=== PATIENT | female | born 2000 | race Caucasian/White ===

== ENCOUNTER 2021-08-18 15:56 | Emergency (ER) | payer OTHER, MEDICAID, SELFPAY ==
[2021-08-18 16:03] VITALS: BP 138/78; PULSE 77; RESP 18; TEMP 36.9; O2SAT 100; BMI 20.1
--- NOTE | 2021-08-18 16:11 | DI.US.S_ITS ---
PROCEDURE: US OB <= 14 WEEKS FETUS INDICATIONS: @ 6 WEEKS, PAIN AND VAGINAL BLEEDING OUTSIDE/PRIOR DATING DATA: Last menstrual period (LMP): July 02, 2021 LMP-based estimated date of delivery (ANABELLE): April 08, 2022 First dating scan (date and location): Not applicable Estimated date of delivery (ANABELLE) from first dating scan: Not applicable TECHNIQUE: Real-time scanning was performed of the fetus and maternal pelvic organs, with image documentation. Endovaginal scanning was also performed to better visualize the fetus and maternal ovaries. COMPARISON: None. FINDINGS: Embryo: Fluid-filled structure noted in the endometrial cavity. No pole or yolk sac identified. Mean gestational sac diameter measures 0.4 centimeters which would correspond to ultrasound estimated gestational age of 5 weeks 1 day. Heart rate: Not identified Maternal organs: Ovaries are sonographically normal. IMPRESSION: Fluid-filled structure in the endometrial cavity which may represent a gestational sac or pseudo gestational sac. Finding may represent early intrauterine , nonviable or occult ectopic . Recommend close clinical observation, correlation with serial beta HCG and short-term ultrasound follow-up in 1 week. Dictated by: Kacey Retana MD, PhD on 08/18/2021 at 18:05 Approved by: Kacey Retana MD, PhD on 08/18/2021 at 18:09
[2021-08-18 16:39] LABS: Add Manual Diff / Slide Review NO; Basophils Absolute Auto 100 /uL (0-100); Basophils Percent Auto 0.6 % (0-2); Eosinophils Absolute Auto 0 /uL (0-450); Eosinophils Percent Auto 0.6 % (2-4); Hematocrit 39.1 % (36-46); Hemoglobin 13.1 g/dL (12.0-16.0); Lymphocytes Absolute Auto 2700 /uL (1100-4500); Lymphocytes Percent Auto 33.6 % (25-40); Mean Corpuscular HGB Conc 33.5 % (30-36); Mean Corpuscular Hemoglobin 29.3 PG (26-34); Mean Corpuscular Volume 87.6 fL (80-100); Monocytes Absolute Auto 500 /uL (0-900); Monocytes Percent Auto 6.6 % (3-14); Neutrophils Absolute Auto 4600 /uL (1500-7000); Neutrophils Percent Auto 58.6 % (50-75); Platelet Count 256 X10^3/uL (150-400); Red Blood Cell Count 4.47 X10^6/uL (4.0-5.2); Red Cell Distribution Width 14.4 % (11.6-14.8); White Blood Cell Count 7.9 X10^3/uL (4.5-11.0)
[2021-08-18 16:54] LABS: Alanine Aminotransferase 20 IU/L (<35); Albumin 5.2 g/dL (3.5-5.0); Albumin Globulin Ratio 1.7 (1.0-2.8); Alkaline Phosphatase 34 U/L (38-126); Aspartate Aminotransferase 21 IU/L (14-36); Bilirubin Total 0.7 mg/dL (0.2-1.3); Blood Urea Nitrogen 14 mg/dL (7-17); Calcium 9.5 mg/dL (8.4-10.2); Carbon Dioxide 26 mmol/L (22-32); Chloride 105 mmol/L (98-107); Estimated Glomerular Filt Rate > 60.0 mL/min (>60); Glucose 81 mg/dL (70-100); HEMOLYSIS < 15 (0-50); Potassium 3.7 mmol/L (3.4-5.1); Sodium 139 mmol/L (137-145); Total Protein 8.2 g/dL (6.3-8.2)
[2021-08-18 17:10] LABS: HCG Quantitative /Beta subunit 809 mIU/mL
[2021-08-18 18:31] LABS: Appearance Urine UA CLEAR; Bilirubin Urine UA NEGATIVE (NEGATIVE); Color Urine UA YELLOW; Glucose Urine UA NEGATIVE (Negative); Ketones Urine UA NEGATIVE (NEGATIVE); Leukocyte Esterase Urine UA NEGATIVE (NEGATIVE); Nitrite Urine UA NEGATIVE (Negative); Occult Blood Urine UA 3+ (Negative); Protein Urine UA NEGATIVE (Negative); Urobilinogen Urine UA 0.2 E.U./dL (0.2)
[2021-08-18 18:32] LABS: pH Urine UA 5.5 (4.5-8.0)
[2021-08-18 18:48] LABS: Bacteria Urine None Seen; Culture Indicated Urine Cult Not Indicated; RBC Urine 5-10/HPF (0-5/HPF); Squamous Epithelial Cell Urine 5-10 /HPF (0-5/HPF); WBC Urine None Seen (0-5/HPF)
[2021-08-18 18:57] VITALS: BP 117/59; PULSE 86; O2SAT 99
[2021-08-18 18:58] VITALS: BP 117/59; PULSE 83; RESP 18; O2SAT 98
[2021-08-18 19:00] VITALS: BP 114/63; PULSE 82; RESP 18; O2SAT 98
[2021-08-18 19:30] VITALS: BP 119/59; PULSE 84; O2SAT 98
--- NOTE | 2021-08-18 19:38 | ED.PREGNANCY ---
HPI - <Dorothy Hayes PA-C - Last Filed: 08/18/21 20:12> General Chief complaint: Urogenital-Female Stated complaint: bleeding, thinks miscarriage Time Seen by Provider: 08/18/21 18:53 Mode of arrival: Ambulatory History of Present Illness HPI Narrative: 21-year-old female, presents to the ED with vaginal bleeding for 1 day. Patient states her LMP was 07/02/2021. Patient has had multiple positive home tests. Patient states that her vaginal bleeding started this morning progressing from light pink to dark red with a few clots. Patient also endorses pelvic cramping. Patient denies fever, chills, chest pain, shortness of breath, dysuria, urinary frequency, abdominal pain, nausea, vomiting, lightheadedness, dizziness, syncope. Related Data Home Medications Medication Instructions Recorded Confirmed vitamin no.102-iron 90 1 cap PO DAILY 08/06/21 mg-folate 1 mg-dha 200 mg capsule Allergies Allergy/AdvReac Type Severity Reaction Status Date / Time No Known Drug Allergies Allergy Unverified 08/06/21 17:10 Review of Systems <Dorothy Hayes PA-C - Last Filed: 08/18/21 20:12> Review of Systems ROS Unobtainable: All systems reviewed & are unremarkable except as noted in HPI and below Constitutional Constitutional: Denies chills, Denies fatigue, Denies fever(s), Denies frequent falls, Denies lethargy and Denies weakness Eyes Eyes: Denies change in vision, Denies eye discharge, Denies irritation and Denies loss of vision ENT Ears, Nose, Mouth, and Throat: Denies change in voice, Denies dizziness, Denies neck pain, Denies sore throat and Denies throat swelling Cardiovascular Cardiovascular: Denies chest pain, Denies irregular heart rhythm, Denies lightheadedness, Denies palpitations, Denies dyspnea, Denies dyspnea on exertion and Denies orthopnea Respiratory Respiratory: Denies cough, Denies dyspnea, Denies dyspnea on exertion and Denies wheezing Gastrointestinal Gastrointestinal: Denies abdominal pain, Denies change in bowel habits, Denies diarrhea, Denies nausea and Denies vomiting Genitourinary Genitourinary: Reports abnormal vaginal bleeding, Denies hematuria, Denies flank pain, Denies urinary incontinence and Denies urinary urgency Comments: Pelvic cramping. Vaginal bleeding, bright red, with clots. Musculoskeletal Musculoskeletal: Denies back pain, Denies muscle weakness, Denies neck pain, Denies numbness and Denies tingling Integumentary/Breasts Skin/Breast: Denies pruritus, Denies erythema, Denies rash and Denies wounds Neurologic Neurologic: Denies behavioral changes, Denies confusion, Denies dizziness, Denies frequent falls, Denies loss of vision, Denies numbness, Denies tingling and Denies weakness Psychiatric Psychiatric: Denies anxiety, Denies behavioral changes, Denies confusion, Denies depression, Denies homicidal ideation and Denies suicidal ideation Endocrine Endocrine: Denies fatigue, Denies flushing and Denies palpitations Hematologic/Lymphatic Hematologic/Lymphatic: Denies easy bruising Allergic/Immunologic Allergic/Immunologic: Denies urticaria, Denies throat swelling and Denies wheezing Exam <Dorothy Hayes PA-C - Last Filed: 08/18/21 20:12> Initial Vital Signs Initial Vital Signs: Vital Signs Temperature 98.5 F 08/18/21 16:03 Pulse Rate 77 08/18/21 16:03 Respiratory Rate 18 08/18/21 16:03 Blood Pressure 138/78 08/18/21 16:03 Pulse Oximetry 100 08/18/21 16:03 Const General: cooperative, healthy appearing and comfortable [facility] Head: normal to inspection Eyes General: appearance normal, both eyes and all related structures Neck Neck: normal visual inspection Chest Chest: normal inspection of the chest Resp Effort & Inspection: normal respiratory effort Auscultation: clear to auscultation bilaterally Cardio Rate: regular rate Rhythm: regular rhythm GI Other: Abdomen is soft, nondistended, nontender to palpation. No CVA tenderness. General: No CVA tenderness Skin General: no rashes or lesions noted Neuro General: patient alert, patient awake and patient oriented x3 Psych Appearance: grossly normal Mental Status: mental status grossly normal <Geena Cronin DO - Last Filed: 08/23/21 09:16> Initial Vital Signs Initial Vital Signs: Vital Signs Temperature 98.5 F 08/18/21 16:03 Pulse Rate 77 08/18/21 16:03 Respiratory Rate 18 08/18/21 16:03 Blood Pressure 138/78 08/18/21 16:03 Pulse Oximetry 100 08/18/21 16:03 Course <Dorothy Hayes PA-C - Last Filed: 08/18/21 20:12> Orders Ordered: Discontinued Medications Acetaminophen (Acetaminophen 325 Mg Tablet) 975 mg PO NOW ONE Stop: 08/18/21 19:38 Last Admin: 08/18/21 19:46 Dose: 975 mg Documented by: HERBER Vital Signs Vital signs: Vital Signs - 8 hr 08/18/21 16:03 08/18/21 18:57 08/18/21 18:58 Temperature 98.5 F Pulse Rate 77 86 83 Respiratory Rate 18 18 Blood Pressure 138/78 117/59 L 117/59 L Pulse Oximetry 100 99 98 08/18/21 19:00 08/18/21 19:30 08/18/21 20:00 Temperature Pulse Rate 82 84 81 Respiratory Rate 18 Blood Pressure 114/63 119/59 L 128/66 Pulse Oximetry 98 98 99 <Geena Cronin DO - Last Filed: 08/23/21 09:16> Orders Ordered: Discontinued Medications Acetaminophen (Acetaminophen 325 Mg Tablet) 975 mg PO NOW ONE Stop: 08/18/21 19:38 Last Admin: 08/18/21 19:46 Dose: 975 mg Documented by: HERBER Vital Signs Vital signs: Vital Signs - 8 hr 08/18/21 16:03 08/18/21 18:57 08/18/21 18:58 Temperature 98.5 F Pulse Rate 77 86 83 Respiratory Rate 18 18 Blood Pressure 138/78 117/59 L 117/59 L Pulse Oximetry 100 99 98 08/18/21 19:00 08/18/21 19:30 08/18/21 20:00 Temperature Pulse Rate 82 84 81 Respiratory Rate 18 Blood Pressure 114/63 119/59 L 128/66 Pulse Oximetry 98 98 99 MDM - OB/Uterine Contractions <Dorothy Hayes PA-C - Last Filed: 08/18/21 20:12> Medical Records Attestation: I reviewed the patient's medical records. Lab Data Attestation: I reviewed the patient's lab results. Lab results narrative: Labs within normal limits. Blood type O positive. HCG quantitative 809. UA negative for UTI Result diagrams: 08/18/21 16:21 08/18/21 16:21 Labs: Lab Results 08/18/21 08/18/21 08/18/21 Range/Units 16:21 16:21 16:21 WBC 7.9 (4.5-11.0) X10^3/uL RBC 4.47 (4.0-5.2) X10^6/uL Hgb 13.1 (12.0-16.0) g/dL Hct 39.1 (36-46) % MCV 87.6 (80-100) fL MCH 29.3 (26-34) PG MCHC 33.5 (30-36) % RDW 14.4 (11.6-14.8) % Plt Count 256 (150-400) X10^3/uL Neut % (Auto) 58.6 (50-75) % Lymph % (Auto) 33.6 (25-40) % [place] % (Auto) 6.6 (3-14) % Eos % (Auto) 0.6 L (2-4) % Baso % (Auto) 0.6 (0-2) % Neut # (Auto) 4600 (9214-9947) /uL Lymph # (Auto) 2700 (8658-3648) /uL [place] # (Auto) 500 (0-900) /uL Eos # (Auto) 0 (0-450) /uL Baso # (Auto) 100 (0-100) /uL Sodium 139 (137-145) mmol/L Potassium 3.7 (3.4-5.1) mmol/L Chloride 105 (98-107) mmol/L Carbon Dioxide 26 (22-32) mmol/L BUN 14 (7-17) mg/dL Creatinine 0.40 L (0.52-1.04) mg/dL Estimated GFR > 60.0 (>60) mL/min BUN/Creatinine Ratio 35.0 H (6-22) Glucose 81 (70-100) mg/dL Calcium 9.5 (8.4-10.2) mg/dL Total Bilirubin 0.7 (0.2-1.3) mg/dL AST 21 (14-36) IU/L ALT 20 (<35) IU/L Alkaline Phosphatase 34 L (38-126) U/L Total Protein 8.2 (6.3-8.2) g/dL Albumin 5.2 H (3.5-5.0) g/dL Globulin 3.0 (1.7-4.1) g/dL Albumin/Globulin Ratio 1.7 (1.0-2.8) HCG, Quant 809 mIU/mL Urine Color Urine Appearance Urine pH (4.5-8.0) Ur Specific [place] (1.000-1.035) Urine Protein (Negative) Urine Glucose (UA) (Negative) g/dL Urine Ketones (NEGATIVE) Urine Occult Blood (Negative) Urine Nitrate (Negative) Urine Bilirubin (NEGATIVE) Urine Urobilinogen (0.2) E.U./dL Ur Leukocyte Esterase (NEGATIVE) Urine RBC (0-5/HPF) Urine WBC (0-5/HPF) Ur Squamous Epith Cells (0-5/HPF) Urine Bacteria (None) Ur Culture Indicated? Blood Type O Positive 08/18/21 Range/Units 17:46 WBC (4.5-11.0) X10^3/uL RBC (4.0-5.2) X10^6/uL Hgb (12.0-16.0) g/dL Hct (36-46) % MCV (80-100) fL MCH (26-34) PG MCHC (30-36) % RDW (11.6-14.8) % Plt Count (150-400) X10^3/uL Neut % (Auto) (50-75) % Lymph % (Auto) (25-40) % [place] % (Auto) (3-14) % Eos % (Auto) (2-4) % Baso % (Auto) (0-2) % Neut # (Auto) (0113-6655) /uL Lymph # (Auto) (7761-0782) /uL [place] # (Auto) (0-900) /uL Eos # (Auto) (0-450) /uL Baso # (Auto) (0-100) /uL Sodium (137-145) mmol/L Potassium (3.4-5.1) mmol/L Chloride (98-107) mmol/L Carbon Dioxide (22-32) mmol/L BUN (7-17) mg/dL Creatinine (0.52-1.04) mg/dL Estimated GFR (>60) mL/min BUN/Creatinine Ratio (6-22) Glucose (70-100) mg/dL Calcium (8.4-10.2) mg/dL Total Bilirubin (0.2-1.3) mg/dL AST (14-36) IU/L ALT (<35) IU/L Alkaline Phosphatase (38-126) U/L Total Protein (6.3-8.2) g/dL Albumin (3.5-5.0) g/dL Globulin (1.7-4.1) g/dL Albumin/Globulin Ratio (1.0-2.8) HCG, Quant mIU/mL Urine Color Yellow Urine Appearance Clear Urine pH 5.5 (4.5-8.0) Ur Specific [place] 1.010 (1.000-1.035) Urine Protein Negative (Negative) Urine Glucose (UA) Negative (Negative) g/dL Urine Ketones Negative (NEGATIVE) Urine Occult Blood 3+ H (Negative) Urine Nitrate Negative (Negative) Urine Bilirubin Negative (NEGATIVE) Urine Urobilinogen 0.2 (0.2) E.U./dL Ur Leukocyte Esterase Negative (NEGATIVE) Urine RBC 5-10/hpf H (0-5/HPF) Urine WBC None seen (0-5/HPF) Ur Squamous Epith Cells 5-10 /hpf H (0-5/HPF) Urine Bacteria None seen (None) Ur Culture Indicated? Cult not indicated Blood Type Imaging Data US - OB: Radiologist's Impression: PROCEDURE:? US OB <= 14 WEEKS FETUS ? INDICATIONS:? @ 6 WEEKS, PAIN AND VAGINAL BLEEDING ? OUTSIDE/PRIOR DATING DATA:? Last menstrual period (LMP):? July 02, 2021 LMP-based estimated date of delivery (ANABELLE):? April 08, 2022 First dating scan (date and location):? Not applicable Estimated date of delivery (ANABELLE) from first dating scan:? Not applicable ? TECHNIQUE:? Real-time scanning was performed of the fetus and maternal pelvic organs, with image documentation.? Endovaginal scanning was also performed to better visualize the fetus and maternal ovaries.? ? COMPARISON:? None. ? FINDINGS:? ? Embryo:? Fluid-filled structure noted in the endometrial cavity.? No pole or yolk sac identified.? Mean gestational sac diameter measures 0.4 centimeters which would correspond to ultrasound estimated gestational age of 5 weeks 1 day. Heart rate:? Not identified ? Maternal organs:? Ovaries are sonographically normal. ? ? IMPRESSION:? Fluid-filled structure in the endometrial cavity which may represent a gestational sac or pseudo gestational sac.? Finding may represent early intrauterine , nonviable or occult ectopic .? Recommend close clinical observation, correlation with serial beta HCG and short-term ultrasound follow-up in 1 week. ? ? ? Dictated by: Kacey Retana MD, PhD on 08/18/2021 at 18:05 ? ? Approved by: Kacey Retana MD, PhD on 08/18/2021 at 18:09 ? MDM Narrative Medical decision making narrative: 21-year-old female, presents to the ED with vaginal bleeding for 1 day. Concern for IUP versus ectopic versus miscarriage. Will order labs, UA, quantitative HCG, ultrasound, ABO Rh typing. Will give RhoGAM if Rh negative. Will reassess. Patient is O positive, no indication for RhoGAM. HCG 809. UA negative for UTI. Ultrasound findings indicate either early intrauterine versus nonviable versus occult ectopic . Patient to call obharry Schmidt tomorrow for a follow-up appointment. ED return precautions discussed. Patient verbalized understanding. <Geena Cronin, DO - Last Filed: 08/23/21 09:16> Lab Data Labs: Lab Results 08/18/21 08/18/21 08/18/21 Range/Units 16:21 16:21 16:21 WBC 7.9 (4.5-11.0) X10^3/uL RBC 4.47 (4.0-5.2) X10^6/uL Hgb 13.1 (12.0-16.0) g/dL Hct 39.1 (36-46) % MCV 87.6 (80-100) fL MCH 29.3 (26-34) PG MCHC 33.5 (30-36) % RDW 14.4 (11.6-14.8) % Plt Count 256 (150-400) X10^3/uL Neut % (Auto) 58.6 (50-75) % Lymph % (Auto) 33.6 (25-40) % [place] % (Auto) 6.6 (3-14) % Eos % (Auto) 0.6 L (2-4) % Baso % (Auto) 0.6 (0-2) % Neut # (Auto) 4600 (4266-3738) /uL Lymph # (Auto) 2700 (9295-4191) /uL [place] # (Auto) 500 (0-900) /uL Eos # (Auto) 0 (0-450) /uL Baso # (Auto) 100 (0-100) /uL Sodium 139 (137-145) mmol/L Potassium 3.7 (3.4-5.1) mmol/L Chloride 105 (98-107) mmol/L Carbon Dioxide 26 (22-32) mmol/L BUN 14 (7-17) mg/dL Creatinine 0.40 L (0.52-1.04) mg/dL Estimated GFR > 60.0 (>60) mL/min BUN/Creatinine Ratio 35.0 H (6-22) Glucose 81 (70-100) mg/dL Calcium 9.5 (8.4-10.2) mg/dL Total Bilirubin 0.7 (0.2-1.3) mg/dL AST 21 (14-36) IU/L ALT 20 (<35) IU/L Alkaline Phosphatase 34 L (38-126) U/L Total Protein 8.2 (6.3-8.2) g/dL Albumin 5.2 H (3.5-5.0) g/dL Globulin 3.0 (1.7-4.1) g/dL Albumin/Globulin Ratio 1.7 (1.0-2.8) HCG, Quant 809 mIU/mL Urine Color Urine Appearance Urine pH (4.5-8.0) Ur Specific [place] (1.000-1.035) Urine Protein (Negative) Urine Glucose (UA) (Negative) g/dL Urine Ketones (NEGATIVE) Urine Occult Blood (Negative) Urine Nitrate (Negative) Urine Bilirubin (NEGATIVE) Urine Urobilinogen (0.2) E.U./dL Ur Leukocyte Esterase (NEGATIVE) Urine RBC (0-5/HPF) Urine WBC (0-5/HPF) Ur Squamous Epith Cells (0-5/HPF) Urine Bacteria (None) Ur Culture Indicated? Blood Type O Positive 08/18/21 Range/Units 17:46 WBC (4.5-11.0) X10^3/uL RBC (4.0-5.2) X10^6/uL Hgb (12.0-16.0) g/dL Hct (36-46) % MCV (80-100) fL MCH (26-34) PG MCHC (30-36) % RDW (11.6-14.8) % Plt Count (150-400) X10^3/uL Neut % (Auto) (50-75) % Lymph % (Auto) (25-40) % [place] % (Auto) (3-14) % Eos % (Auto) (2-4) % Baso % (Auto) (0-2) % Neut # (Auto) (1705-3979) /uL Lymph # (Auto) (3014-2304) /uL [place] # (Auto) (0-900) /uL Eos # (Auto) (0-450) /uL Baso # (Auto) (0-100) /uL Sodium (137-145) mmol/L Potassium (3.4-5.1) mmol/L Chloride (98-107) mmol/L Carbon Dioxide (22-32) mmol/L BUN (7-17) mg/dL Creatinine (0.52-1.04) mg/dL Estimated GFR (>60) mL/min BUN/Creatinine Ratio (6-22) Glucose (70-100) mg/dL Calcium (8.4-10.2) mg/dL Total Bilirubin (0.2-1.3) mg/dL AST (14-36) IU/L ALT (<35) IU/L Alkaline Phosphatase (38-126) U/L Total Protein (6.3-8.2) g/dL Albumin (3.5-5.0) g/dL Globulin (1.7-4.1) g/dL Albumin/Globulin Ratio (1.0-2.8) HCG, Quant mIU/mL Urine Color Yellow Urine Appearance Clear Urine pH 5.5 (4.5-8.0) Ur Specific [place] 1.010 (1.000-1.035) Urine Protein Negative (Negative) Urine Glucose (UA) Negative (Negative) g/dL Urine Ketones Negative (NEGATIVE) Urine Occult Blood 3+ H (Negative) Urine Nitrate Negative (Negative) Urine Bilirubin Negative (NEGATIVE) Urine Urobilinogen 0.2 (0.2) E.U./dL Ur Leukocyte Esterase Negative (NEGATIVE) Urine RBC 5-10/hpf H (0-5/HPF) Urine WBC None seen (0-5/HPF) Ur Squamous Epith Cells 5-10 /hpf H (0-5/HPF) Urine Bacteria None seen (None) Ur Culture Indicated? Cult not indicated Blood Type Discharge Plan Departure Patient Disposition: Home Clinical Impression: Vaginal bleeding during Instructions: DI for Vaginal Bleeding During Activity Restrictions/Additional Instructions: You were evaluated in the ED today for vaginal bleeding. Your labs were within normal limits. Your hCG quantitative was 809. Your ultrasound indicates either early intrauterine or nonviable . Please follow-up with OBGYJuancarlos Schmidt at [phone] for a repeat hCG and ultrasound. Return to the ED if your symptoms worsen, you experience nausea, vomiting, heavy bleeding, shortness of breath. Prescriptions: No Action PNV 099-[id number]-[id number] 90 mg iron- 1 mg-200 mg capsule 1 cap PO DAILY 0RF <Geena Cronin DO - Last Filed: 08/23/21 09:16> Cosign ED Attending Cosignature Attestation: I was immediately available in the department for consultation. Documentation has been reviewed.
[2021-08-18] MEDS: ACETAMINOPHEN 325 MG TABLET 975 MG PO (19:46)
[2021-08-18 20:00] VITALS: BP 128/66; PULSE 81; O2SAT 99
== END 2021-08-18 20:24 | disposition home or self-care (01) ==
PROVIDERS: Emergency Medicine; Emergency Provider Student in an Organized Health Care Education/Training Program
DX: O20.9 Hemorrhage in early pregnancy, unspecified (principal); Z3A.00 Weeks of gestation of pregnancy not specified
CPT/HCPCS: 36415; 76801; 76817; 80053; 81001; 84702; 85025; 86900; 86901; 99284

== ENCOUNTER → 2021-08-20 16:47 | Outpatient (CLI) | payer OTHER, MEDICAID, SELFPAY ==
[2021-08-20 18:10] LABS: HCG Quantitative /Beta subunit 207.2 mIU/mL
== END ==
PROVIDERS: Referring Provider Obstetrics & Gynecology; Visit Provider Obstetrics & Gynecology
DX: O46.90 Antepartum hemorrhage, unspecified, unspecified trimester (principal)
CPT/HCPCS: 36415; 84702

== ENCOUNTER → 2021-09-29 13:44 | Outpatient (CLI) | payer OTHER, MEDICAID, SELFPAY ==
[2021-09-29 14:53] LABS: HCG Quantitative /Beta subunit 13023 mIU/mL
== END ==
PROVIDERS: Referring Provider Obstetrics & Gynecology; Visit Provider Obstetrics & Gynecology
DX: Z34.80 Encounter for supervision of other normal pregnancy, unspecified trimester (principal)
CPT/HCPCS: 36415; 84702

== ENCOUNTER 2021-11-10 17:59 | Emergency (ER) | payer OTHER, MEDICAID, SELFPAY ==
--- NOTE | 2021-11-10 18:04 | DI.US.S_ITS ---
PROCEDURE: US OB <= 14 WEEKS FETUS INDICATIONS: BLEEDING 11 WEEKS OUTSIDE/PRIOR DATING DATA: Last menstrual period (LMP): Unknown. LMP-based estimated date of delivery (ANABELLE): Unknown. First dating scan (date and location): 10/14/2021. Estimated date of delivery (ANABELLE) from first dating scan: 05/31/2022. TECHNIQUE: Real-time scanning was performed of the fetus and maternal pelvic organs, with image documentation. Endovaginal scanning was also performed to better visualize the fetus and maternal ovaries. COMPARISON: [facility], , OB <= 14 WEEKS FETUS, 08/18/2021, 17:12. FINDINGS: Embryo: Single pole with crown-rump length measuring 5.6 cm measures 12 week 1 day gestation. Heart rate: 160 beats per minute. EGA by initial ultrasound: 11 week 1 day Perigestational hemorrhage measures 6.0 x 6.4 x 1.5 cm. Maternal organs: Ovaries show a right-sided corpus luteum cyst.. IMPRESSION: 1. Single live intrauterine corresponds with a 12 week 1 day gestation by current ultrasound 2. Large perigestational bleed Approved by: Edwin Walters M.D. on 11/10/2021 at 18:08
[2021-11-10 18:26] VITALS: BP 115/59; PULSE 84; RESP 16; TEMP 36.1; O2SAT 98; BMI 21.0
[2021-11-10 18:41] LABS: Add Manual Diff / Slide Review NO; Basophils Absolute Auto 0 /uL (0-100); Basophils Percent Auto 0.5 % (0-2); Eosinophils Absolute Auto 0 /uL (0-450); Eosinophils Percent Auto 0.4 % (2-4); Hematocrit 38.7 % (36-46); Hemoglobin 13.1 g/dL (12.0-16.0); Lymphocytes Absolute Auto 2100 /uL (1100-4500); Mean Corpuscular HGB Conc 33.9 % (30-36); Mean Corpuscular Hemoglobin 29.1 PG (26-34); Monocytes Absolute Auto 600 /uL (0-900); Monocytes Percent Auto 7.7 % (3-14); Neutrophils Absolute Auto 5000 /uL (1500-7000); Neutrophils Percent Auto 64.4 % (50-75); Platelet Count 253 X10^3/uL (150-400); Red Blood Cell Count 4.51 X10^6/uL (4.0-5.2); Red Cell Distribution Width 14.3 % (11.6-14.8); White Blood Cell Count 7.8 X10^3/uL (4.5-11.0)
[2021-11-10 19:18] LABS: Bacteria Urine Occasional (0-1); RBC Urine 10-30/HPF (0-5/HPF); Squamous Epithelial Cell Urine 1-5 /HPF (0-5/HPF); Transitional Epi Cells Urine 0-1/HPF (0-5/HPF); WBC Urine 0-1/HPF (0-5/HPF)
[2021-11-10 19:19] LABS: Culture Indicated Urine Cult Not Indicated; Mucus Urine 2+ (Negative)
[2021-11-10 20:00] LABS: HCG Quantitative /Beta subunit 79820 mIU/mL
[2021-11-10 20:58] VITALS: BP 111/62; PULSE 98; RESP 18; O2SAT 98
--- NOTE | 2021-11-10 21:23 | ED_ITS ---
HPI - General Chief complaint: OB/Uterine Contractions Stated complaint: 11 Wks Preg/Bleeding Time Seen by Provider: 11/10/21 18:04 Source: patient Mode of arrival: Ambulatory History of Present Illness HPI Narrative: 21-year-old female nonsmoker is a at 11 weeks and managed locally by Dr. Schmidt presents today with a chief complaint of lower pelvic cramping and bleeding that was heavy prior to her arrival, she states that for 2-3 hours she was bleeding through about 1 pad per hour. She reports having had a known subc horionic hemorrhage since about the 7 week mile and after using pelvic rest a subsequent ultrasound suggested it was improving. Her bleeding is greatly improved by the time she arrives. She is not dizzy nor weak or lightheaded. She denies any chest pain or shortness of breath Related Data Home Medications Medication Instructions Recorded Confirmed vitamin no.102-iron 90 1 cap PO DAILY 08/06/21 11/04/21 mg-folate 1 mg-dha 200 mg capsule alpha lipoic acid 250 mg capsule 250 mg PO ONCE cap 11/04/21 11/04/21 Allergies Allergy/AdvReac Type Severity Reaction Status Date / Time No Known Drug Allergies Allergy Unverified 11/10/21 18:28 Review of Systems Review of Systems Narrative: GENERAL: Denies chills, fatigue, malaise, fever, sweats. HEENT: Denies sinus pain, ear pain, sore throat, difficulty swallowing, dizziness. RESPIRATORY: Denies dyspnea, cough, wheezing, hemoptysis, sputum. CARDIOVASCULAR: Denies chest pain, palpitations, orthopnea, edema, GASTROINTESTINAL: Denies nausea, vomiting, abdominal pain, diarrhea, constipation, melena. : See HPI MUSCULOSKELETAL: denies weakness, joint pain, or bony pain SKIN: Denies rash, skin lesions, or other NEUROLOGIC: Denies weakness, headache, numbness, change in speech, confusion, seizures, incoordination. PSYCHIATRIC: No concerning psychosocial issues. 12 point review of systems is negative except for those stated above Exam Initial Vital Signs Initial Vital Signs: Vital Signs Temperature 97 F L 11/10/21 18:26 Pulse Rate 84 11/10/21 18:26 Respiratory Rate 16 11/10/21 18:26 Blood Pressure 115/59 L 11/10/21 18:26 Pulse Oximetry 98 11/10/21 18:26 Course Orders Ordered: ED Orders 11/10/21 18:04 US OB <= 14 weeks fetus Stat 11/10/21 18:30 ABO RH Type Stat CBC Auto Diff [Complete Blood Count AUTO DIFF] Stat HCG Quantitative /Beta subunit Stat 11/10/21 18:35 Urine Culture Stat Urine Microscopic Stat Vital Signs Vital signs: Vital Signs - 8 hr 11/10/21 18:26 11/10/21 20:58 Temperature 97 F L Pulse Rate 84 98 H Respiratory Rate 16 18 Blood Pressure 115/59 L 111/62 Pulse Oximetry 98 98 MDM - OB/Uterine Contractions Lab Data Result diagrams: 11/10/21 18:30 Labs: Lab Results 11/10/21 11/10/21 11/10/21 Range/Units 18:30 18:30 18:30 WBC 7.8 (4.5-11.0) X10^3/uL RBC 4.51 (4.0-5.2) X10^6/uL Hgb 13.1 (12.0-16.0) g/dL Hct 38.7 (36-46) % MCV 86.0 (80-100) fL MCH 29.1 (26-34) PG MCHC 33.9 (30-36) % RDW 14.3 (11.6-14.8) % Plt Count 253 (150-400) X10^3/uL Neut % (Auto) 64.4 (50-75) % Lymph % (Auto) 27.0 (25-40) % [place] % (Auto) 7.7 (3-14) % Eos % (Auto) 0.4 L (2-4) % Baso % (Auto) 0.5 (0-2) % Neut # (Auto) 5000 (7184-0362) /uL Lymph # (Auto) 2100 (4971-2439) /uL [place] # (Auto) 600 (0-900) /uL Eos # (Auto) 0 (0-450) /uL Baso # (Auto) 0 (0-100) /uL HCG, Quant 22827 mIU/mL Urine RBC (0-5/HPF) Urine WBC (0-5/HPF) Ur Squamous Epith Cells (0-5/HPF) Ur Transition Epith Cell (0-5/HPF) Urine Bacteria (None) Urine Mucus (Negative) Ur Culture Indicated? Blood Type O Positive 11/10/21 Range/Units 18:35 WBC (4.5-11.0) X10^3/uL RBC (4.0-5.2) X10^6/uL Hgb (12.0-16.0) g/dL Hct (36-46) % MCV (80-100) fL MCH (26-34) PG MCHC (30-36) % RDW (11.6-14.8) % Plt Count (150-400) X10^3/uL Neut % (Auto) (50-75) % Lymph % (Auto) (25-40) % [place] % (Auto) (3-14) % Eos % (Auto) (2-4) % Baso % (Auto) (0-2) % Neut # (Auto) (6913-4389) /uL Lymph # (Auto) (7165-8104) /uL [place] # (Auto) (0-900) /uL Eos # (Auto) (0-450) /uL Baso # (Auto) (0-100) /uL HCG, Quant mIU/mL Urine RBC 10-30/hpf H (0-5/HPF) Urine WBC 0-1/hpf (0-5/HPF) Ur Squamous Epith Cells 1-5 /hpf (0-5/HPF) Ur Transition Epith Cell 0-1/hpf (0-5/HPF) Urine Bacteria Occasional (0-1) (None) Urine Mucus 2+ H (Negative) Ur Culture Indicated? Cult not indicated Blood Type Urine Dip Bedside Urine Glucose Negative Bedside Urine Bilirubin - Negative Bedside Urine Ketone +++ 80 Urine Specific Drew 1.020 Bedside Urine Occult Blood +++ Bedside Urine pH 6.0 Bedside Urine Protein - Negative Bedside Urine Urobilinogen - Negative Bedside Urine Nitrite - Negative Bedside Urine Leukocytes - Negative Esterase Imaging Data US - OB: Radiologist's Impression: Jennifer Thapa??21??F??2000 ? Allergy/Adv: No Known Drug Allergies Close Ultrasound (Signed) Edwin Walters - 11/10/21 Ultrasound (Signed) Kacey Retana - 08/18/21 Launch?[address] [address] Ultrasound Report Signed Patient: Jennifer Thapa MR#: [id number] : 2000 Acct:[id number] Age/Sex: 21 / F Date of Service: 11/10/21 Loc: Accession Number: [id number] ?? Procedure: US OB <= 14 weeks fetus Ordering Provider: Daryn Crabtree D.O. PROCEDURE:? US OB <= 14 WEEKS FETUS ? INDICATIONS:? BLEEDING 11 WEEKS ? OUTSIDE/PRIOR DATING DATA:? Last menstrual period (LMP):? Unknown.? LMP-based estimated date of delivery (ANABELLE):? Unknown.? First dating scan (date and location):? 10/14/2021.? Estimated date of delivery (ANABELLE) from first dating scan:? 05/31/2022. ? TECHNIQUE:? Real-time scanning was performed of the fetus and maternal pelvic organs, with image documentation.? Endovaginal scanning was also performed to better visualize the fetus and maternal ovaries.? ? COMPARISON:? [facility], , OB <= 14 WEEKS FETUS, 08/18/2021, 17:12. ? FINDINGS:? ? Embryo:? Single pole with crown-rump length measuring 5.6 cm measures 12 week 1 day gestation. Heart rate:? 160 beats per minute. ? EGA by initial ultrasound:? 11 week 1 day Perigestational hemorrhage measures 6.0 x 6.4 x 1.5 cm. ? Maternal organs:? Ovaries show a right-sided corpus luteum cyst.. ? ? ? IMPRESSION:? ? 1. Single live intrauterine corresponds with a 12 week 1 day gestation by current ultrasound ? 2. Large perigestational bleed ? Approved by: Edwin Walters M.D. on 11/10/2021 at 18:08? Discharge Plan Departure Patient Disposition: Home Clinical Impression: Hemorrhage affecting Instructions: Early Bleeding Activity Restrictions/Additional Instructions: *You have been diagnosed with [vaginal bleeding with very stable blood work and vital signs. Your ultrasound today shows a large perigestational bleed. I have discussed with on-call OB and they will reach out to you tomorrow, in the meantime they recommend resuming pelvic rest and keeping your overall activity at a minimum until further notice *What to do: *Please continue to take your regular medications as directed. [ ] New medication prescriptions sent to your pharmacy: [ ] [ ] New medication written as a paper prescription x ] No new medications given *Please follow up with Dr. Schmidt as soon as possible. Let them know you were seen in the Emergency Department and that we ask that you be seen in follow up. We will electronically transmit a record of today's note *Return to Emergency Department if you should have any new, worsening or con cerning symptoms Prescriptions: No Action PNV 905-cfxd-reggbs-dha 90 mg iron- 1 mg-200 mg capsule 1 cap PO DAILY 0RF alpha lipoic acid 250 mg capsule 250 mg PO ONCE 0RF Referrals: Linda Schmidt MD [Primary Care Provider] - Stand Alone Forms: Work Release Note
== END 2021-11-10 21:44 | disposition home or self-care (01) ==
PROVIDERS: Emergency Provider Emergency Medicine; PCP Obstetrics & Gynecology
DX: O20.9 Hemorrhage in early pregnancy, unspecified (principal); Z3A.11 11 weeks gestation of pregnancy
CPT/HCPCS: 36415; 76801; 81003; 81015; 84702; 85025; 86900; 86901; 87086; 99283